=== PATIENT | female | born 1990 | race Caucasian/White ===

== ENCOUNTER 2020-09-08 20:08 | Emergency (ER) | payer BC, MEDICAID ==
[~2020-09-08] VITALS: Ht 149.9 cm; Wt 90.7 kg
[2020-09-08 20:10] VITALS: BP 140/79
[2020-09-08] MEDS ORDERED: LORazepam 1 MG TAB PO ONE (20:40)
[2020-09-08 21:26] VITALS: BP 140/79
== END 2020-09-08 21:23 | disposition home or self-care (01) ==
LOC: MED 20:08
DX: S00.211A Abrasion of right eyelid and periocular area, initial encounter (principal); F41.1 Generalized anxiety disorder; F15.90 Other stimulant use, unspecified, uncomplicated; E66.9 Obesity, unspecified; Z68.41 Body mass index [BMI] 40.0-44.9, adult; X58.XXXA Exposure to other specified factors, initial encounter; Y93.89 Activity, other specified; Y92.89 Other specified places as the place of occurrence of the external cause; Y99.8 Other external cause status
CPT/HCPCS: 99283